=== PATIENT | female | born 1960 | race Two or more races ===

== ENCOUNTER 2025-05-06 12:48 | Inpatient (IN) | payer MEDICAID, OTHER ==
[~2025-05-06] VITALS: Ht 162.6 cm; Wt 79.3 kg
--- NOTE | 2025-05-06 13:48 | ED.PDOC ---
History of Present Illness(SKN HPI Comments 64 y.o female with PMHX of DM, presents to the ED for an evaluation of a foot wound. Patient reports PCP Dr. Ambriz examined patient's foot today after she c/o of left foot redness and swelling radiating up her calf x 2.5 months. Patient had wound cleaned and wrapped there and sent to the ED to get admitted for IV medication and further management of care. She denies any fever, chills, nausea. Chief Complaint: Wound Check Time Seen by MD: 13:35 History of Present Illness: Nurses Notes, Medications, Allergies Allergies: Coded Allergies: Codeine (Verified Allergy, Unknown, 05/06/25) Information Source: Patient Mode of Arrival: Ambulatory Severity: Moderate Timing: Months (2.5) Duration: Since onset Location: Foot Mechanism: Spontaneous Onset Wound Type: Other History of: Diabetes Associated Signs and Symptoms: Swelling Past Medical History PAST MEDICAL HISTORY: DM Surgical History (Other): Left greater toe amputation. DIALYSIS RN History: No Pertinent DIALYSIS RN History Family History Family History: Reviewed,noncontributory to illness Social History Smoker: Non-Smoker Alcohol: Denies ETOH Use Drugs: Denies Drug Use Lives In: Home Constitutional: denies: chills, diaphoresis, fatigue, fever, malaise, sweats, weakness, others EENTM: denies: blurred vision, double vision, ear bleeding, ear discharge, ear drainage, ear pain, ear ringing, eye pain, eye redness, hearing loss, mouth pain, mouth swelling, nasal discharge, nose bleeding, nose congestion, nose pain, photophobia, tearing, throat pain, throat swelling, voice changes, others Respiratory: denies: cough, hemoptysis, orthopnea, SOB at rest, shortness of breath, SOB with excertion, stridor, wheezing, others Cardiovascular: denies: chest pain, dizzy spells, diaphoresis, Dyspnea on exertion, edema, irregular heart beat, left arm pain, lightheadedness, palpitations, PND, syncope, others Gastrointestinal: denies: abdomen distended, abdominal pain, blood streaked bowels, constipated, diarrhea, dysphagia, difficulty swallowing, hematemesis, melena, nausea, poor appetite, poor fluid intake, rectal bleeding, rectal pain, vomiting, others Genitourinary: denies: abnormal vagina bleeding, burning, dyspareunia, dysuria, flank pain, frequency, hematuria, incontinence, pain, , vagina discharge, urgency, others Neurological: denies: dizziness, fainting, headache, left sided numbness, left sided weakness, numbness, paresthesia, pre-existing deficit, right sided numbness, right sided weakness, seizure, speech problems, tingling, tremors, weakness, others Musculoskeletal: denies: back pain, gout, joint pain, joint swelling, muscle pain, muscle stiffness, neck pain, others Integumetry: reports: wounds (left great toe ); denies: bruises, change in color, change in hair/nails, dryness, laceration, lesions, lumps, rash, others Allergic/Immunocompromised: denies: Difficulty Healing, Frequent Infections, Hives, Itching, others Hematologic/Lymphatic: denies: anemia, blood clots, easy bleeding, easy b ruising, swollen glands, others Endocrine: denies: excessive hunger, excessive sweating, excessive thirst, excessive urination, flushing, intolerance to cold, intolerance to heat, unexplained weight gain, unexplained weight loss, others Psychiatric: denies: anxiety, bipolar disorder, depression, hopeless, panic disorder, schizophrenia, sleepless, suicidal, others All Other Systems: Reviewed and Negative Physical Exam General Appearance: Moderate Distress HEENT: Normal ENT Inspection, Pharynx Normal, TMs Normal Neck: Full Range of Motion, Non-Tender, Normal, Normal Inspection Respiratory: Chest Non-Tender, Lungs Clear, No Accessory Muscle Use, No Respiratory Distress, Normal Breath Sounds Cardiovascular: No Edema, No JVD, No Murmur, No Gallop, Normal Peripheral Pulses, Regular Rate/Rhythm Breast Exam: Deferred Gastrointestinal: No Organomegaly, Non Tender, No Pulsatile Mass, Normal Bowel Sounds, Soft Genitalia: Deferred Pelvic: Deferred Rectal: Deferred Extremities: No calf tenderness, Normal capillary refill, Normal inspection, Normal range of motion, Non-tender, No pedal edema, Swelling (Left lower extremity), Other (Old right toe amputation) Musculoskeletal : Apperance: Normal Neurologic: Alert, detention deputy II-XII nml as Tested, No Motor Deficits, Normal Affect, Normal Mood, No Sensory Deficits Cerebellar Function: NOT DONE Reflexes: NOT DONE Skin: Wounds (Left foot) Peripheral Pulses: 3+ Radial (R), 3+ Radial (L) Lymphatic: No Adenopathy Was a procedure done? Was a procedure done?: No Differential Diagnosis (INTG) Differential Diagnosis: Cellulitis Differential Diagnosis: Cellulitis, Osteomyelitis Abscess: Bacteremia X-Ray, Labs, Meds, VS Vital Signs Date Time Temp Pulse Resp B/P (MAP) Pulse Ox O2 Delivery O2 Flow Rate FiO2 05/06/25 17:17 98.7 93 13 137/60 (85) 98.7 05/06/25 14:46 98.0 94 16 130/58 (82) 100 98.0 05/06/25 12:51 98.0 106 18 117/57 95 98.0 Lab Test 05/06/25 13:35 Range/Units White Blood Count 6.1 4.4-10.8 10^3/uL Red Blood Count 3.97 L 4.0-5.20 10^6/uL Hemoglobin 11.4 L 12.2-16.2 g/dL Hematocrit 33.9 L 36.0-46.0 % Mean Corpuscular Volume 85.5 80.0-100.0 fL Mean Corpuscular Hemoglobin 28.7 28.0-32.0 pg Mean Corpuscular Hemoglobin Concent 33.6 32.0-36.0 g/dL Red Cell Distribution Width 13.7 11.8-14.3 % Platelet Count 348 140-450 10^3/uL Mean Platelet Volume 6.8 L 6.9-10.8 fL Neutrophils (%) (Auto) 71.8 37.0-80.0 % Lymphocytes (%) (Auto) 18.3 10.0-50.0 % Monocytes (%) (Auto) 8.1 0.0-12.0 % Eosinophils (%) (Auto) 1.5 0.0-7.0 % Basophils (%) (Auto) 0.3 0.0-2.0 % Neutrophils # (Auto) 4.4 1.6-8.6 10 ^3/uL Lymphocytes # (Auto) 1.1 0.4-5.4 10 ^3/uL Monocytes # (Auto) 0.5 0-1.3 10 ^3/uL Eosinophils # (Auto) 0.1 0-0.8 10 ^3/uL Basophils # (Auto) 0 0-0.2 10 ^3/uL Nucleated Red Blood Cells 0.0 % Sodium Level 134 L 136-145 mmol/L Potassium Level 4.2 3.5-5.1 mmol/L Chloride Level 97 L 98-107 mmol/L Carbon Dioxide Level 26 20-31 mmol/L Anion Gap 11 5-15 Blood Urea Nitrogen 16 9-23 mg/dL Creatinine 1.27 H 0.550-1.02 mg/dL Glomerular Filtration Rate Calc 47 >90 mL/min BUN/Creatinine Ratio 12.6 10.0-20.0 Serum Glucose 208 H 74-106 mg/dL Calcium Level 9.5 8.7-10.4 mg/dL Patient alert. Vitals stable. Came in because she needed antibiotics per her left lower extremity. Answering questions. WBC within normal limits. Blood sugar elevated. Establish intravenous access. Was given fluids. Was given Zosyn. Was given clindamycin. Explained to the patient. Continue to monitor. Time of 1ST Reevaluation: 13:43 Reevaluation 1ST: Unchanged Patient Education/Counseling: Diagnosis, Treatment, Prognosis Family Education/Counseling: No Family Present SEPSIS Sepsis Screen Date sepsis recognized/suspect: May 06, 2025 Time Sepsis recognized/suspect: 1252 Recent Procedure: No On Antibiotic Therapy: No Respiratory Rate >20: No Heart Rate >90: Yes Temp<36 C (96.8 F) or >38.3 C: No SBP <90 or MAP <65 mmHG: No New Acute Mental Status Change: No Is the patient on CPAP, BIPAP,: No Physician Orders Urinalysis (05/06/25 13:18) Vital Signs Date Time Temp Pulse Resp B/P (MAP) Pulse Ox O2 Delivery O2 Flow Rate FiO2 05/06/25 17:17 98.7 93 13 137/60 (85) 98.7 05/06/25 14:46 98.0 94 16 130/58 (82) 100 98.0 05/06/25 12:51 98.0 106 18 117/57 95 98.0 Laboratory Tests Test 05/06/25 13:35 White Blood Count 6.1 10^3/uL (4.4-10.8) Departure 1 Departure Time of Disposition: 17:46 Impression: Primary Impression: Uncontrolled diabetes mellitus Qualified Codes: E13.65 - Other specified diabetes mellitus with hyperglycemia Additional Impression: Osteomyelitis Qualified Codes: M86.9 - Osteomyelitis, unspecified Disposition: 09 ADMITTED INPATIENT Admit to: Med Surg Condition: Guarded Critical Care Note Critical Care Time?: No Stability Stability form required: No I personally scribed for DANIEL PAGE MD ([facility] on 05/06/25 at 13:48. Electronically submitted by Isabel Olmos ([facility]). DANIEL PAGE MD May 06, 2025 13:48
[2025-05-06 13:49] LABS: Hematocrit 33.9 % (36.0-46.0); Hemoglobin 11.4 g/dL (12.2-16.2); Mean Corpuscular Hemoglobin 28.7 pg (28.0-32.0); Mean Corpuscular Volume 85.5 fL (80.0-100.0); Nucleated Red Blood Cells % 0.0 %
[2025-05-06 14:00] LABS: Potassium 4.2 mmol/L (3.5-5.1)
[2025-05-06 14:01] LABS: Calcium 9.5 mg/dL (8.7-10.4); Carbon Dioxide 26 mmol/L (20-31)
[2025-05-06 14:04] LABS: Anion Gap 11 (5-15); Chloride 97 mmol/L (98-107); Sodium 134 mmol/L (136-145)
[2025-05-06 14:06] LABS: BUN/Creatinine Ratio 12.6 (10.0-20.0); Blood Urea Nitrogen 16 mg/dL (9-23)
[2025-05-06 14:07] LABS: Glucose 208 mg/dL (74-106)
[2025-05-06 17:17] VITALS: O2SAT 98
[2025-05-06] MEDS: CLINDAMYCIN 600MG IV 50 ML IV ONE (18:08)
--- NOTE | 2025-05-06 18:22 | DVH ---
CLINICAL HISTORY: dvt left lower extremity swelling TECHNIQUE: Color and duplex doppler imaging of the left lower extremity veins was performed. Vessel c ompression if possible was also performed. WID: COMPARISON: None FINDINGS: Prominent left inguinal lymph node measuring 3.3 cm. Left common femoral vein: Normal compressibility and flow. Left femoral vein: Normal compressibility and flow. Left popliteal vein: Normal compressibility and flow. Proximal calf veins are normally compressible. IMPRESSION: 1. NO SONOGRAPHIC EVIDENCE FOR DEEP VENOUS THROMBOSIS IN THE LEFT LOWER EXTREMITY VEINS.
[2025-05-06] MEDS ORDERED: VANCOMYCIN PER PHARMACY 0 MG IV SCH (18:45)
[2025-05-06] MEDS ORDERED: DEXTROSE (50%) 50ML SYRG IV PRN (18:45)
--- NOTE | 2025-05-06 19:01 | DVHHPRES ---
History of Present Illness Resident Creating Document: LINWOOD WHITFIELD Reason for Visit: left foot ulcer History of Present Illness 64 year old female with a past medical history of type 2 diabetes diagnosed 4 years ago on metformin and Jardiance came to the emergency department for left toe ulcer. Patient has been going to Dr. Ambriz in2 months ago she had an ulcer in the right toe. Patient reports that Dr. Ambriz has been seeing her and been cutting off the calluses, on Friday he cut some more and gave her Bactrim but patient was unable to take it because of miscommunication with the pharmacy and only received the medication on Friday(4 days ago). Patient reports that after going home from Dr. Ambriz's office she had fever, chills, diaphoresis and was drowsy. She began the Bactrim on Friday and today met him after which he suggested the patient to come to the ER.. Past medical history: Type 2 diabetes mellitus Past surgical history: History of amputation of the right toe Family history: Patient reports that family has prediabetic, cervical cancer and brain tumor Allergies: None Social history: Patient denies ever drinking, smoking or taking any illicit antonio gs Medication at home: Metformin, Jardiance, gabapentin, Bactrim Code status: Full code PCP: Dr. Reyes Review of Systems Constitutional: Yes: Fever, Chills, Sweats Eyes: No: Pain, Vision change, Conjunctivae inflammation, Eyelid inflammation, Other, Redness ENT: No: Ear pain, Ear discharge, Nose pain, Nose discharge, Nose congestion, Mouth pain, Mouth swelling, Throat pain, Throat swelling, Other Respiratory: No: Cough, Dry, Shortness of breath, SOB with excertion, Wheezing, Hemoptysis, Pleuritic Pain, Sputum, Wheezing, Other Cardiovascular: No: Chest Pain, Palpitations, Orthopnea, Paroxysmal Noc. Dyspnea, Edema, Lt Headedness, Other Gastrointestinal: No: Nausea, Vomiting, Abdominal Pain, Diarrhea, Constipation, Melena, Hematochezia, Other Genitourinary: No Dysuria, No Frequency, No Incontinence, No Hematuria, No Retention, No Other Musculoskeletal: leg pain, foot pain Skin: No: Rash, Lesions, Jaundice, Bruising, Other Neurological: No: Weakness, Numbness, Incoordination, Change in speech, Confusion, Seizures, Other Allergies: Coded Allergies: Codeine (Verified Allergy, Unknown, 05/06/25) Medications Metformin, Jardiance, gabapentin, Bactrim Exam Vital Signs Vital Signs Date Time Temp Pulse Resp B/P (MAP) Pulse Ox O2 Delivery O2 Flow Rate FiO2 05/06/25 17:17 98.7 93 13 137/60 (85) 98.7 05/06/25 14:46 100 Exam Pt is lying on bed General Appearance: Alert, Oriented X3, Cooperative, Not in acute distress HEENT: Atraumatic, Mucous membranes moist/pink Respiratory: Clear to auscultation, Normal air movement, No added sounds Cardiovascular: Regular rate, Normal S1, Normal S2, No murmurs Abdominal: Active bowel sounds, Soft, no distention, no tenderness Extremities: No edema, Normal pulses, No tenderness/swelling, right toe amputated, left toe bandaged, left calf is larger, warm compared to the right calf, pitting edema +1 up to knee on left leg Skin: No Significant rash, except past surgical scars Neuro: Normal speech, sensorimotor deficits none Psych/Mental Status: Mental status NL, Mood NL Nurse was there as forestry fire aide during examination Labs/Xrays Labs Test 05/06/25 18:00 05/06/25 13:35 Range/Units Lactic Acid Level 1.0 0.4-2.0 mmol/L White Blood Count 6.1 4.4-10.8 10^3/uL Red Blood Count 3.97 L 4.0-5.20 10^6/uL Hemoglobin 11.4 L 12.2-16.2 g/dL Hematocrit 33.9 L 36.0-46.0 % Mean Corpuscular Volume 85.5 80.0-100.0 fL Mean Corpuscular Hemoglobin 28.7 28.0-32.0 pg Mean Corpuscular Hemoglobin Concent 33.6 32.0-36.0 g/dL Red Cell Distribution Width 13.7 11.8-14.3 % Platelet Count 348 140-450 10^3/uL Mean Platelet Volume 6.8 L 6.9-10.8 fL Neutrophils (%) (Auto) 71.8 37.0-80.0 % Lymphocytes (%) (Auto) 18.3 10.0-50.0 % Monocytes (%) (Auto) 8.1 0.0-12.0 % Eosinophils (%) (Auto) 1.5 0.0-7.0 % Basophils (%) (Auto) 0.3 0.0-2.0 % Neutrophils # (Auto) 4.4 1.6-8.6 10 ^3/uL Lymphocytes # (Auto) 1.1 0.4-5.4 10 ^3/uL Monocytes # (Auto) 0.5 0-1.3 10 ^3/uL Eosinophils # (Auto) 0.1 0-0.8 10 ^3/uL Basophils # (Auto) 0 0-0.2 10 ^3/uL Nucleated Red Blood Cells 0.0 % Sodium Level 134 L 136-145 mmol/L Potassium Level 4.2 3.5-5.1 mmol/L Chloride Level 97 L 98-107 mmol/L Carbon Dioxide Level 26 20-31 mmol/L Anion Gap 11 5-15 Blood Urea Nitrogen 16 9-23 mg/dL Creatinine 1.27 H 0.550-1.02 mg/dL Glomerular Filtration Rate Calc 47 >90 mL/min BUN/Creatinine Ratio 12.6 10.0-20.0 Serum Glucose 208 H 74-106 mg/dL Calcium Level 9.5 8.7-10.4 mg/dL SEPSIS Sepsis Screen Date sepsis recognized/suspect: May 06, 2025 Time Sepsis recognized/suspect: 1252 Recent Procedure: No On Antibiotic Therapy: No Respiratory Rate >20: No Heart Rate >90: Yes Temp<36 C (96.8 F) or >38.3 C: No SBP <90 or MAP <65 mmHG: No New Acute Mental Status Change: No Is the patient on CPAP, BIPAP,: No Physician Orders Urinalysis (05/06/25 13:18) Lt Lower Dvt (05/06/25 17:50) Piperacillin-Tazob 3.375gm (Zosyn 3.375g (05/06/25 18:00) Clindamycin 600mg Iv (Cleocin Iv) (05/06/25 18:00) Sodium Chloride 0.9% (05/06/25 18:00) Sodium Chloride 0.9% (05/06/25 18:00) Blood Culture (05/06/25 17:50) Ct L Foot Wo Contrast (05/06/25 17:50) Acetaminophen Tab Or Cap (Tylenol Tablet (05/06/25 18:30) Admit (05/06/25 18:42) Oxygen By Nasal Cannula (05/06/25 18:42) Stat Ekg For Chest Pain (05/06/25 18:42) Notify Of Changes From Base (05/06/25 18:42) Vital Signs Date Time Temp Pulse Resp B/P (MAP) Pulse Ox O2 Delivery O2 Flow Rate FiO2 05/06/25 17:17 98.7 93 13 137/60 (85) 98.7 05/06/25 14:46 98.0 94 16 130/58 (82) 100 98.0 05/06/25 12:51 98.0 106 18 117/57 95 98.0 Laboratory Tests Test 05/06/25 13:35 05/06/25 18:00 White Blood Count 6.1 10^3/uL (4.4-10.8) Lactic Acid Level 1.0 mmol/L (0.4-2.0) Medications Medications Dose Ordered Sig/Nigel Route Start Time Stop Time Status Last Admin Dose Admin Clindamycin Phosphate 50 ml @ 50 mls/hr ONCE ONCE IV 05/06/25 18:00 05/06/25 18:59 05/06/25 18:08 50 MLS/HR Assessment/Plan Assessment/Plan Assessmenr and Plan #Right toe ulcer #osteomyelitis of the right toe #Rule out DVT -CT left foot without contrast shows: Extensive bony destruction and sclerosis at the 1st distal phalanx compatible with osteomyelitis; Probable superimposed oblique fracture of the medial base of the 1st distal phalanx, Diffuse soft tissue edema at the ankle and foot. --Extremity venous Doppler shows no sonographic evidence for deep vein thrombo sis in the left lower extremity veins - metronidazole 500 mg IV daily -Vancomycin 1 g IV daily -Cefepime 2g IV Q8 -IV fluids sodium chloride 0.9% -Lovenox 40 mg subcutaneous daily -consistent carbohydrate diet, NPO after midnight -PT/PTT, pending -podiatry consult, pending -EKG -BNP # diabetes mellitus type 2 -HBA1c, pending -Accu-Cheks -Mild sliding scale insulin -insulin Lantus 10 units subcutaneous hs DVT prophylaxis Lovenox Goals of care discussed with the patient for more than 27 minutes: Full code status Case discussed with Dr. Covarrubias, patient and nurse. Plan discussed with: Patient Date of Service: May 06, 2025 Billing Provider: LUDMILA COVARRUBIAS MD Common Visit Codes: [id number] INP/OBS CARE (HIGH) Secondary Visit Codes: [id number] CARE PLAN 30 MINUTES LINWOOD WHITFIELD RESIDENT May 06, 2025 19:01
--- NOTE | 2025-05-06 19:21 | DVH ---
EXAMINATION: CT CT L FOOT WO CONTRAST INDICATION: Pain and swelling. Is 4 osteomyelitis. COMPARISON: None TECHNIQUE: CT of the rightleft foot was performed without contrast. Volume transverse images were obt ained reconstructed in multiple planes using bone and soft tissue algorithms. CTD: 7.75 mGy, DLP: 27.21 mGy-cm FINDINGS: Diffuse soft tissue edema at the ankle and foot. This is most pronounced at the 1st toe. No organized fluid collections. Extensive bony destruction and sclerosis at the 1st distal phalanx with if you local of gas in the so ft tissues. No other obvious erosive changes. Probable superimposed oblique fracture at the medial base of the 1st distal phalanx. IMPRESSION: Extensive bony destruction and sclerosis at the 1st distal phalanx compatible with osteomyelitis. Probable superimposed oblique fracture of the medial base of the 1st distal phalanx. Diffuse soft tissue edema at the ankle and foot.
--- NOTE | 2025-05-06 19:30 | DVH ---
EXAM: XY CHEST PORTABLE CLINICAL HISTORY: sob TECHNIQUE: Single AP view of the chest WID: COMPARISON: None FINDINGS: Lines and tubes: None Chest: The heart size and pulmonary vasculature is within normal limits. No pleural effusion, pneumothorax, or consolidation. Limited depth of inspiration. The osseous structures are grossly intact. Multilevel thoracic spondylosis. IMPRESSION: 1. No acute cardiopulmonary abnormality.
[2025-05-06 19:35] LABS: Urine Protein, UAD TRACE (Negative)
[2025-05-06 19:36] LABS: Alanine Aminotransferase 12.0 U/L (7-40); Albumin 4.5 g/dL (3.2-4.8); Alkaline Phosphatase 88.0 U/L (46-116); Total Protein 8.0 g/dL (5.7-8.2)
[2025-05-06 19:37] LABS: Bilirubin, Direct 0.1 mg/dL (<0.3); Bilirubin, Total 0.4 mg/dL (0.2-1.0)
[2025-05-06] MEDS: ACCU-CHEK COMFORT CURVE STRIP VI SCH (20:00)
[2025-05-06] MEDS: INSULIN LANTUS (GLARGINE) 1 /0.01ml (100units/ml) SC ONE (20:00)
[2025-05-06] MEDS: SODIUM CHLORIDE 0.9% 1,000 ML IV ONE (20:03)
[2025-05-06] MEDS: VANCOMYCIN 1GM/250ML KIT 250 ML IV ONE (20:03)
[2025-05-06] MEDS: ACETAMINOPHEN 500 MG TAB or CAP PO ONE (20:03)
[2025-05-06] MEDS: InsuLIN REG 1unit/0.01ml Soln (100units/ml) SC SCH (20:43)
[2025-05-06] MEDS: PIPERACILLIN-TAZOB 3.375GM 100 ML IV ONE (21:39)
[2025-05-06] MEDS: SODIUM CHLORIDE 0.9% 500 ML IV ONE (21:40)
[2025-05-06] MEDS: ENOXAPARIN SOD 40 MG/0.4 ML SYRINGE SC ONE (21:40)
[2025-05-06] MEDS: CEFEPIME 2GM/50ML NS 50 ML IV SCH (22:30)
[2025-05-06] MEDS: VANCOMYCIN 1GM/250ML IV ONE (23:37)
[2025-05-07] VITALS (9 sets, daily range): BP systolic 103–121; BP diastolic 62–68; PULSE 59–68; RESP 16–18; TEMP 98–98.7; O2SAT 94–98
[2025-05-07] MEDS: SODIUM CHLORIDE 0.9% 1,000 ML IV ONE (00:50)
[2025-05-07 03:47] LABS: Hematocrit 29.6 % (36.0-46.0); Hemoglobin 10.0 g/dL (12.2-16.2); Mean Corpuscular Hemoglobin 28.9 pg (28.0-32.0); Mean Corpuscular Volume 85.2 fL (80.0-100.0); Nucleated Red Blood Cells % 0.1 %
[2025-05-07 03:56] LABS: Anion Gap 9 (5-15); Calcium 8.8 mg/dL (8.7-10.4); Carbon Dioxide 25 mmol/L (20-31); Chloride 103 mmol/L (98-107); Potassium 4.0 mmol/L (3.5-5.1); Sodium 137 mmol/L (136-145)
[2025-05-07 04:02] LABS: BUN/Creatinine Ratio 16.0 (10.0-20.0); Blood Urea Nitrogen 16 mg/dL (9-23); Magnesium 1.9 mg/dL (1.6-2.6)
[2025-05-07 04:03] LABS: Glucose 177 mg/dL (74-106)
[2025-05-07] MEDS ORDERED: GABA-1250 PO (04:53)
[2025-05-07] MEDS ORDERED: OMEG1400 PO (04:53)
[2025-05-07] MEDS ORDERED: METF-370 PO (04:53)
[2025-05-07] MEDS ORDERED: DEXTROSE (50%) 50ML SYRG IV PRN (06:30)
[2025-05-07] MEDS: ACCU-CHEK COMFORT CURVE STRIP VI SCH (08:40)
[2025-05-07] MEDS: InsuLIN REG 1unit/0.01ml Soln (100units/ml) SC SCH (08:43)
[2025-05-07] MEDS: INSULIN LISPRO (HUMAN) 100 UNITS/ML ML SC SCH ×2 (08:43→13:54)
[2025-05-07] MEDS: INSULIN LANTUS (GLARGINE) 1 /0.01ml (100units/ml) SC SCH (08:43)
[2025-05-07] MEDS: ACETAMINOPHEN 325 MG TAB PO PRN ×2 (10:14→16:25)
[2025-05-07] MEDS: ENOXAPARIN SOD 40 MG/0.4 ML SYRINGE SC SCH (10:15)
--- NOTE | 2025-05-07 12:07 | DVHPNRES ---
Progress Note Date Seen: May 07, 2025 Resident Creating Document: CLIFTON LARSON RESIDENT Medical Necessity Reason Pt with a Central, PICC or Fol: No Subjective Review of Systems HPI 64 year old female with a past medical history of type 2 diabetes diagnosed 4 years ago on metformin and Jardiance came to the emergency department for left toe ulcer. Patient has been going to Dr. Ambriz in2 months ago she had an ulcer in the right toe. Patient reports that Dr. Ambriz has been seeing her and been cutting off the calluses, on Friday he cut some more and gave her Bactrim but patient was unable to take it because of miscommunication with the pharmacy and only received the medication on Friday(4 days ago). Patient reports that after going home from Dr. Ambriz's office she had fever, chills, diaphoresis and was drowsy. She began the Bactrim on Friday and today met him after which he suggested the patient to come to the ER.. Past medical history: Type 2 diabetes mellitus Past surgical history: History of amputation of the right toe Family history: Patient reports that family has prediabetic, cervical cancer and brain tumor Allergies: None Social history: Patient denies ever drinking, smoking or taking any illicit drugs Medication at home: Metformin, Jardiance, gabapentin, Bactrim Code status: Full code PCP: Dr. Reyes Interval events 05/07/2025 Patient mentioned mild headache, no complaint Objective vital signs Vital Sign Date Time Temp Pulse Resp B/P (MAP) Pulse Ox O2 Delivery O2 Flow Rate FiO2 05/07/25 08:53 98.0 59 18 118/68 (85) 97 98.0 05/07/25 04:14 Room Air* 0 21 Total Intake and Output 05/06/25 05/06/25 05/07/25 15:00 23:00 07:00 Intake Total 1850 ml 950.0 ml Balance 1850 ml 950.0 ml medications Current Medications Medications Dose Ordered Sig/Nigel Route Start Time Stop Time Status Last Admin Dose Admin Vancomycin HCl 0 ml @ 0 mls/hr UD IV 05/06/25 18:45 Cefepime HCl 50 ml @ 12.5 mls/hr Q8HR IV 05/06/25 22:00 05/07/25 06:27 12.5 MLS/HR Insulin Glargine 10 units QAM SC 05/07/25 07:00 Enoxaparin Sodium 40 mg DAILY SC 05/07/25 10:00 05/07/25 10:15 40 MG Insulin Human Lispro 3 units AC SC 05/07/25 07:00 Diagnostic Test (Pha) 1 strip ACHS 05/07/25 07:00 05/07/25 08:40 1 STRIP Dextrose 50 ml UD PRN IV 05/07/25 06:30 Acetaminophen 650 mg Q6HP PRN PO 05/07/25 09:30 05/07/25 10:14 650 MG Insulin Human Lispro ACHS SC 05/07/25 11:30 Examination Pt is lying on bed General Appearance: Alert, Oriented X3, Cooperative, Not in acute distress HEENT: Atraumatic, Mucous membranes moist/pink Respiratory: Clear to auscultation, Normal air movement, No added sounds Cardiovascular: Regular rate, Normal S1, Normal S2, No murmurs Abdominal: Active bowel sounds, Soft, no distention, no tenderness Extremities: No edema, Normal pulses, No tenderness/swelling, right toe amputated, left toe bandaged, left calf is larger, warm compared to the right calf, pitting edema +1 up to knee on left leg Skin: No Significant rash, except past surgical scars Neuro: Normal speech, sensorimotor deficits none Psych/Mental Status: Mental status NL, Mood NL laboratory and microbiology Laboratory Tests 05/07/25 03:17 Test 05/07/25 03:17 Range/Units Serum Glucose 177 H 74-106 mg/dL Problem List/Assessment/Plan Problem List/Assessment/Plan Assessment/plan # cellulitis right lower leg # osteomyelitis of the right toe # Probable superimposed oblique fracture of the medial base of the 1st distal phalanx. # Ruled out DVT -CT left foot without contrast shows: Extensive bony destruction and sclerosis at the 1st distal phalanx compatible with osteomyelitis; Probable superimposed oblique fracture of the medial base of the 1st distal phalanx, Diffuse soft tissue edema at the ankle and foot. --Extremity venous Doppler shows no sonographic evidence for deep vein thrombosis in the left lower extremity veins -Vancomycin 1 g IV daily -Cefepime 2g IV Q8 -IV fluids sodium chloride 0.9% -Lovenox 40 mg subcutaneous daily -consistent carbohydrate diet -PT/PTT, pending -podiatry consult, pending -EKG -BNP As per Podiatry, patient needs a PICC line and six weeks of antibiotics Ordered PICC line consult, awaiting placement # diabetes mellitus type 2 -HBA1c, pending -Accu-Cheks -Mild sliding scale insulin -insulin Lantus 10 units subcutaneous hs DVT prophylaxis Lovenox Goals of care discussed with the patient for more than 27 minutes: Full code status Case discussed with Dr. Covarrubias, patient and nurse. Plan discussed with: Patient, Daughter My Orders My Orders Orders - CLIFTON LARSON RESIDENT Procedure Category Date Status Time Admit ADMIT 05/06/25 Transmitted 18:42 Oxygen By Nasal RT 05/06/25 Transmitted Cannula 18:42 Stat Ekg For Chest [facility] 05/06/25 In Process Pain 18:42 Notify Of Changes [facility] 05/06/25 In Process From Base 18:42 Supervisor Costuming For [facility] 05/06/25 In Process 24 Hours 18:42 Emergency Dysrhythmia [facility] 05/06/25 In Process Protocol 18:42 Rhythm Strips Once [facility] 05/06/25 In Process Every Shift 18:42 Vancomycin Per [facility] 05/06/25 In Process Pharmacy 18:45 Cefepime 2gm/50ml Ns [facility] 05/06/25 In Process (Maxipime 2gm/50ml) 22:00 Electrocardigram EKG 05/06/25 Logged 18:42 Insulin Lantus [facility] 05/07/25 In Process (Glargine) (Lantus) 07:00 Enoxaparin Sodium [facility] 05/07/25 In Process (Lovenox) 10:00 *Podiatry Consult CONS 05/06/25 Transmitted Musson(Dvmg) 18:42 Chest Portable XY 05/06/25 Resulted 18:42 * Wound Consult CONS 05/06/25 Transmitted Wound Culture W/ Gs NICOLE 05/06/25 Logged 18:42 Mrsa Screen NICOLE 05/06/25 Logged 18:42 Insulin Lispro [facility] 05/07/25 In Process (Human) (Humalog) 07:00 Glucose Blood PHA 05/07/25 In Process (Accu-Chek Comfort 07:00 Dextrose 50% Syringe PHA 05/07/25 In Process 06:30 Communication Order ORDERS 05/07/25 Transmitted 06:25 Acetaminophen Tablet PHA 05/07/25 In Process (Tylenol Tablet) 09:30 Consistent DIET 05/07/25 Transmitted Carb(Ccho)Diabetes Lunch * Picc Line Consult CONS 05/07/25 Transmitted 11:28 Date of Service: May 07, 2025 Billing Provider: LUDMILA COVARRUBIAS MD Common Visit Codes: [id number] INP/OBS CARE(HIGH) CLIFTON LARSON RESIDENT May 07, 2025 12:07 LUDMILA COVARRUBIAS MD May 11, 2025 23:39
[2025-05-07] MEDS: VANCOMYCIN 1GM/250ML KIT 250 ML IV SCH (17:43)
[2025-05-08] VITALS (9 sets, daily range): BP systolic 110–122; BP diastolic 65–93; PULSE 56–71; RESP 15–19; TEMP 97.7–99.1; O2SAT 96–98
[2025-05-08 06:36] LABS: Hematocrit 32.0 % (36.0-46.0); Hemoglobin 10.9 g/dL (12.2-16.2); Mean Corpuscular Hemoglobin 28.9 pg (28.0-32.0); Mean Corpuscular Volume 85.0 fL (80.0-100.0); Nucleated Red Blood Cells % 0.1 %
[2025-05-08 06:42] LABS: Chloride 102 mmol/L (98-107); Potassium 4.2 mmol/L (3.5-5.1); Sodium 138 mmol/L (136-145)
[2025-05-08 06:43] LABS: Anion Gap 11 (5-15); Calcium 9.6 mg/dL (8.7-10.4); Carbon Dioxide 25 mmol/L (20-31)
[2025-05-08 06:49] LABS: BUN/Creatinine Ratio 19.5 (10.0-20.0); Blood Urea Nitrogen 16 mg/dL (9-23); Magnesium 1.8 mg/dL (1.6-2.6)
[2025-05-08 07:05] LABS: Glucose 119 mg/dL (74-106)
[2025-05-08 08:08] LABS: INR 1.01 (0.9-1.15); Partial Thromboplastin Time 26.8 SEC (24.5-34.5); Prothrombin Time 10.7 sec (9.3-11.8)
--- NOTE | 2025-05-08 10:45 | DVHPNRES ---
Progress Note Date Seen: May 08, 2025 Resident Creating Document: ORA WEAVER RESIDENT Medical Necessity Reason Pt with a Central, PICC or Fol: No Subjective Review of Systems 64 year old female with a past medical history of type 2 diabetes diagnosed 4 years ago on metformin and Jardiance came to the emergency department for left toe ulcer. Patient has been going to Dr. Ambriz in2 months ago she had an ulcer in the right toe. Patient reports that Dr. Ambriz has been seeing her and been cutting off the calluses, on Friday he cut some more and gave her Bactrim but patient was unable to take it because of miscommunication with the pharmacy and only received the medication on Friday(4 days ago). Patient reports that after going home from Dr. Ambriz's office she had fever, chills, diaphoresis and was drowsy. She began the Bactrim on Friday and today met him after which he suggested the patient to come to the ER.. Past medical history: Type 2 diabetes mellitus Past surgical history: History of amputation of the right toe Family history: Patient reports that family has prediabetic, cervical cancer and brain tumor Allergies: None Social history: Patient denies ever drinking, smoking or taking any illicit drugs Medication at home: Metformin, Jardiance, gabapentin, Bactrim Code status: Full code PCP: Dr. Reyes Patient was seen today at bedside, less than chart reviewed. Patient reported feeling better today, blood culture negative, pending wound culture. Doppler study negative for DVT. CT of the left foot revealed- Extensive bony destruction and sclerosis at the 1st distal phalanx compatible with osteomyelitis. Probable superimposed oblique fracture of the medial base of the 1st distal phalanx.Diffuse soft tissue edema at the ankle and foot. Objective vital signs Vital Sign Date Time Temp Pulse Resp B/P (MAP) Pulse Ox O2 Delivery O2 Flow Rate FiO2 05/08/25 09:00 98.3 62 17 122/70 (87) 96 98.3 05/08/25 08:20 Room Air* 0 21 Total Intake and Output 05/07/25 05/07/25 05/08/25 14:59 22:59 06:59 Intake Total 12.5 ml 1480 ml 1040 ml Output Total 600 ml Balance 12.5 ml 1480 ml 440 ml medications Current Medications Medications Dose Ordered Sig/Nigel Route Start Time Stop Time Status Last Admin Dose Admin Vancomycin HCl 0 ml @ 0 mls/hr UD IV 05/06/25 18:45 Cefepime HCl 50 ml @ 12.5 mls/hr Q8HR IV 05/06/25 22:00 05/08/25 06:11 12.5 MLS/HR Insulin Glargine 10 units QAM SC 05/07/25 07:00 05/08/25 06:10 10 UNITS Enoxaparin Sodium 40 mg DAILY SC 05/07/25 10:00 05/08/25 10:11 40 MG Insulin Human Lispro 3 units AC SC 05/07/25 07:00 05/07/25 13:54 3 UNITS Diagnostic Test (Pha) 1 strip ACHS 05/07/25 07:00 05/08/25 10:13 1 STRIP Dextrose 50 ml UD PRN IV 05/07/25 06:30 Insulin Human Lispro ACHS SC 05/07/25 11:30 05/07/25 22:04 1 UNITS Acetaminophen 650 mg Q6HP PRN PO 05/07/25 12:15 05/08/25 06:29 650 MG Vancomycin HCl 250 ml @ 250 mls/hr Q12H IV 05/07/25 18:00 05/08/25 05:00 250 MLS/HR Examination General Appearance: Alert, Oriented X3, Cooperative, Not in acute distress HEENT: Atraumatic, Mucous membranes moist/pink Respiratory: Clear to auscultation, Normal air movement, No added sounds Cardiovascular: Regular rate, Normal S1, Normal S2, No murmurs Abdominal: Active bowel sounds, Soft, no distention, no tenderness Extremities: No edema, Normal pulses, No tenderness/swelling, right toe amputated, left toe bandaged, left calf is larger, warm compared to the right calf, pitting edema +1 up to knee on left leg Skin: No Significant rash, except past surgical scars Neuro: Normal speech, sensorimotor deficits none Psych/Mental Status: Mental status NL, Mood NL laboratory and microbiology Laboratory Tests 05/08/25 05:00 Test 05/08/25 05:00 Range/Units Serum Glucose 119 H 74-106 mg/dL Microbiology Date/Time Source Procedure Growth Status 05/07/25 18:36 Foot Left Gram Stain Pending Resulted 05/07/25 18:36 Foot Left Wound Culture - Preliminary Resulted 05/06/25 18:00 Blood Blood Culture - Preliminary NO GROWTH AFTER 24 HOURS OF INCUBATION. Resulted Problem List/Assessment/Plan Problem List/Assessment/Plan Problem List/Assessment/Plan Assessment/plan # cellulitis right lower leg # osteomyelitis of the right toe # Probable superimposed oblique fracture of the medial base of the 1st distal phalanx. # Ruled out DVT -CT left foot without contrast shows: Extensive bony destruction and sclerosis at the 1st distal phalanx compatible with osteomyelitis; Probable superimposed oblique fracture of the medial base of the 1st distal phalanx, Diffuse soft tissue edema at the ankle and foot. --Extremity venous Doppler shows no sonographic evidence for deep vein thrombosis in the left lower extremity veins -Vancomycin 1 g IV daily -Cefepime 2g IV Q8 -IV fluids sodium chloride 0.9% -Lovenox 40 mg subcutaneous daily -consistent carbohydrate diet -PT/PTT, pending -podiatry consult, pending -EKG -BNP As per Podiatry, patient needs a PICC line and six weeks of antibiotics Ordered PICC line consult, awaiting placement # diabetes mellitus type 2 -HBA1c, pending -Accu-Cheks -Mild sliding scale insulin -insulin Lantus 10 units subcutaneous hs DVT prophylaxis Lovenox Goals of care discussed with the patient for more than 27 minutes: Full code status Case discussed with Dr. Covarrubias, patient and Plan discussed with: Patient, Daughter, Other (RN) ORA WEAVER RESIDENT May 08, 2025 10:45
[2025-05-08] MEDS: LIDOCAINE 1% (LOCAL ANESTH.) PF 5ml SDV ID ONE (12:45)
--- NOTE | 2025-05-08 14:14 | DVHDSRES ---
Discharge Summary Date of Admission Resident Creating Document: ORA WEAVER May 06, 2025 at 18:42 Date of Discharge: May 08, 2025 Labs/Diagnostic Data: Laboratory Results Test 05/08/25 10:12 05/08/25 05:00 05/06/25 18:00 05/06/25 13:35 POC Glucose 191 mg/dl (70-106) White Blood Count 4.4 10^3/uL (4.4-10.8) Red Blood Count 3.76 10^6/uL (4.0-5.20) Hemoglobin 10.9 g/dL (12.2-16.2) Hematocrit 32.0 % (36.0-46.0) Mean Corpuscular Volume 85.0 fL (80.0-100.0) Mean Corpuscular Hemoglobin 28.9 pg (28.0-32.0) Mean Corpuscular Hemoglobin Concent 34.0 g/dL (32.0-36.0) Red Cell Distribution Width 13.7 % (11.8-14.3) Platelet Count 322 10^3/uL (140-450) Mean Platelet Volume 7.1 fL (6.9-10.8) Neutrophils (%) (Auto) 57.6 % (37.0-80.0) Lymphocytes (%) (Auto) 28.1 % (10.0-50.0) Monocytes (%) (Auto) 9.7 % (0.0-12.0) Eosinophils (%) (Auto) 3.7 % (0.0-7.0) Basophils (%) (Auto) 0.9 % (0.0-2.0) Neutrophils # (Auto) 2.5 10 ^3/uL (1.6-8.6) Lymphocytes # (Auto) 1.2 10 ^3/uL (0.4-5.4) Monocytes # (Auto) 0.4 10 ^3/uL (0-1.3) Eosinophils # (Auto) 0.2 10 ^3/uL (0-0.8) Basophils # (Auto) 0 10 ^3/uL (0-0.2) Nucleated Red Blood Cells 0.1 % Prothrombin Time 10.7 sec (9.3-11.8) Prothrombin Time INR 1.01 (0.9-1.15) Activated Partial Thromboplast Time 26.8 SEC (24.5-34.5) Sodium Level 138 mmol/L (136-145) Potassium Level 4.2 mmol/L (3.5-5.1) Chloride Level 102 mmol/L (98-107) Carbon Dioxide Level 25 mmol/L (20-31) Anion Gap 11 (5-15) Blood Urea Nitrogen 16 mg/dL (9-23) Creatinine 0.82 mg/dL (0.550-1.02) Glomerular Filtration Rate Calc 79 mL/min (>90) BUN/Creatinine Ratio 19.5 (10.0-20.0) Serum Glucose 119 mg/dL (74-106) Calcium Level 9.6 mg/dL (8.7-10.4) Magnesium Level 1.8 mg/dL (1.6-2.6) Lactic Acid Level 1.0 mmol/L (0.4-2.0) Total Bilirubin 0.4 mg/dL (0.2-1.0) Direct Bilirubin 0.1 mg/dL (<0.3) Aspartate Amino Transferase (AST) 20 U/L (13-40) Alanine Aminotransferase (ALT) 12 U/L (7-40) Alkaline Phosphatase 88 U/L (46-116) Troponin I High Sensitivity < 3 ng/L (</=34) Total Protein 8.0 g/dL (5.7-8.2) Albumin 4.5 g/dL (3.2-4.8) Thyroid Stimulating Hormone (TSH) 0.64 uIU/mL (0.55-4.78) Hemoglobin A1c 8.4 % A1C (<5.7) B-Type Natriuretic Peptide 53.25 pg/mL (0-100) Test 05/06/25 00:00 Urine Color Light-yellow (Yellow) Urine Clarity Clear (Clear) Urine pH 5.5 (5.0-9.0) Urine Specific [place] 1.017 (1.001-1.035) Urine Protein Trace (Negative) Urine Ketones Negative (Negative) Urine Blood Negative /uL (Negative) Urine Nitrite Negative (Negative) Urine Bilirubin Negative (Negative) Urine Urobilinogen Normal mg/dL (Negative) Urine Leukocyte Esterase Trace /uL (Negative) Urine RBC 2 /hpf (0 - 4) Urine Microscopic WBC 5 /HPF (0-5) Urine Squamous Epithelial Cells Few /hpf (<5) Urine Bacteria None seen /hpf (None Seen) Urine Glucose 4+ mg/dL (Normal) Other Laboratory Tests 05/08/25 05:00 Brief Hx & Hospital Course: 64 year old female with a past medical history of type 2 diabetes diagnosed 4 years ago on metformin and Jardiance came to the emergency department for left toe ulcer. Patient has been going to Dr. Ambriz in2 months ago she had an ulcer in the right toe. Patient reports that Dr. Ambriz has been seeing her and been cutting off the calluses, on Friday he cut some more and gave her Bactrim but patient was unable to take it because of miscommunication with the pharmacy and only received the medication on Friday(4 days ago). Patient reports that after going home from Dr. Ambriz's office she had fever, chills, diaphoresis and was drowsy. She began the Bactrim on Friday and today met him after which he suggested the patient to come to the ER.. . Doppler study negative for DVT. CT of the left foot revealed- Extensive bony destruction and sclerosis at the 1st distal phalanx compatible with osteomyelitis. Probable superimposed oblique fracture of the medial base of the 1st distal phalanx.Diffuse soft tissue edema at the ankle and foot. Patient was treated conservatively with IV antibiotic cefepime and vancomycin. Podiatry Dr. Fernandes agreed to [place] patient with IV antibiotic cefepime and vancomycin for total of 6 weeks for osteomyelitis. No surgical intervention needed at this time Patient is being discharged home with the home health for wound care and IV antibiotic cefepime 2 g IV q.8h and vancomycin as per pharmacy protocol for total of 6 weeks from the day abuse starting IV antibiotic in the hospital. Patient was advised to follow up with the Podiatry in 1 week and also to follow up with the primary care physician in 1 week. Patient was advised to follow up with the discharge clinic as per schedule. Patient was hemodynamically stable on discharge. Operations or Procedures [address] [address] Ph: [phone] DIAGNOSTIC IMAGING Diagnostic Imaging Report : [id number] Signed PATIENT: DALLIN GORDON ACCT: [id number] UNIT: [id number] : 1960 LOC: OVERFLOW ROOM / BED: [address] [place] [address] / AGE / SEX: 64 / F ADM STATUS: ADM IN SERVICE 49 ORDERING PHYSICIAN: DANIEL PAGE MD PROCEDURE(s): LFTCT - CT L FOOT WO CONTRAST REASON: osteo ORDER NUMBER(s): [id number], ACCESSION NUMBER(s): [id number] EXAMINATION: CT CT L FOOT WO CONTRAST INDICATION: Pain and swelling. Is 4 osteomyelitis. COMPARISON: None TECHNIQUE: CT of the rightleft foot was performed without contrast. Volume transverse images were obtained reconstructed in multiple planes using bone and soft tissue algorithms. CTD: 7.75 mGy, DLP: 27.21 mGy-cm FINDINGS: Diffuse soft tissue edema at the ankle and foot. This is most pronounced at the 1st toe. No organized fluid collections. Extensive bony destruction and sclerosis at the 1st distal phalanx with if you local of gas in the soft tissues. No other obvious erosive changes. Probable superimposed oblique fracture at the medial base of the 1st distal phalanx. IMPRESSION: Extensive bony destruction and sclerosis at the 1st distal phalanx compatible with osteomyelitis. Probable superimposed oblique fracture of the medial base of the 1st distal phalanx. Diffuse soft tissue edema at the ankle and foot. ATED BY: DOMINGO JACOBSON MD DICTATED DATE/TIME: 05/06/251918 SIGNED BY: DOMINGO JACOBSON MD SIGNED DATE/TIME: 05/06/251918 CC: [place] [id number] Ph: [phone] DIAGNOSTIC IMAGING Diagnostic Imaging Report : [id number] Signed PATIENT: DALLIN GORDON ACCT: [id number] UNIT: [id number] : 1960 LOC: ER ROOM / BED: / AGE / SEX: 64 / F ADM STATUS: REG ER SERVICE 49 ORDERING PHYSICIAN: DANIEL PAGE MD PROCEDURE(s): LLDVT - LT Lower DVT REASON: dvt ORDER NUMBER(s): [id number], ACCESSION NUMBER(s): [id number] CLINICAL HISTORY: dvt left lower extremity swelling TECHNIQUE: Color and duplex doppler imaging of the left lower extremity veins was performed. Vessel compression if possible was also performed. WID: COMPARISON: None FINDINGS: Prominent left inguinal lymph node measuring 3.3 cm. Left common femoral vein: Normal compressibility and flow. Left femoral vein: Normal compressibility and flow. Left popliteal vein: Normal compressibility and flow. Proximal calf veins are normally compressible. IMPRESSION: 1. NO SONOGRAPHIC EVIDENCE FOR DEEP VENOUS THROMBOSIS IN THE LEFT LOWER EXTREMITY VEINS. ATED BY: JHONNY CALDERA MD DICTATED DATE/TIME: 05/06/251818 SIGNED BY: JHONNY CALDERA MD SIGNED DATE/TIME: 05/06/251818 CC: [place] [id number] Ph: [phone] DIAGNOSTIC IMAGING Diagnostic Imaging Report : [id number] Signed PATIENT: DALLIN GORDON ACCT: [id number] UNIT: [id number] : 1960 LOC: OVERFLOW ROOM / BED: [address] [place] [address] AGE / SEX: 64 / F ADM STATUS: ADM IN SERVICE 41 ORDERING PHYSICIAN: CLIFTON LARSON RESIDENT PROCEDURE(s): CXRP - CHEST PORTABLE REASON: sob ORDER NUMBER(s): [id number], ACCESSION NUMBER(s): [id number] EXAM: XY CHEST PORTABLE CLINICAL HISTORY: sob TECHNIQUE: Single AP view of the chest WID: COMPARISON: None FINDINGS: Lines and tubes: None Chest: The heart size and pulmonary vasculature is within normal limits. No pleural effusion, pneumothorax, or consolidation. Limited depth of inspiration. The osseous structures are grossly intact. Multilevel thoracic spondylosis. IMPRESSION: 1. No acute cardiopulmonary abnormality. ATED BY: JHONNY CALDERA MD DICTATED DATE/TIME: 05/06/251926 SIGNED BY: JHONNY CALDERA MD SIGNED DATE/TIME: 05/06/251926 CC: Condition at Discharge: Stable Final Diagnosis/Problems List # cellulitis LEFT lower leg # osteomyelitis of the Left toe # Probable superimposed oblique fracture of the medial base of the 1st distal phalanx. # Ruled out DVT # diabetes mellitus type 2 Discharge Disposition: Home with Health Services Discharge Instruct/Medications Activity: Light activity Follow Up/Referral: please follow up with Dr. Carmona in one week please follow up with with your primary care physician in one week please follow up at the discharge clinic on 05/13/25Friday Medications: Cefepime 2 gm q8h as prescribed Vancomycin 1 gm iv q12 h as prescribed please reseme other home medication Scheduled Gabapentin (Gabapentin), 1 CAP PO DAILY, (Reported) Metformin Hydrochloride (Metformin Hcl), 1 TAB PO BID, (Reported) Miscellaneous Medications Capac-3 Fatty Acids (Capac-3), 1,400 MG PO, (Reported) Discharge Statement: "Patient was advised to return to the ER or call 911 if any headaches, dizziness, shortness of breath, chest pain, abdominal pain, bleeding, fevers, or worsening of medical condition. Patient was counseled about treatment plan, medications, possible side effects, patientverbalized understanding. All questions were answered to the best of my ability. This discharge took greater then 30 minutes in planning, reviewing documentation, counseling the patient, and discussing with other team members." ASSESSMENT ASSESSMENT Assessment Date of Service: May 08, 2025 Billing Provider: LUDMILA GONZALEZ MD Common Visit Codes: 07593-UCZ/OBS DISCH DAY >30min ORA WEAVER RESIDENT May 08, 2025 14:14 LUDMILA GONZALEZ MD May 11, 2025 23:42
[2025-05-08] MEDS: SODIUM CHLOR 0.9% PF (SALINE LOCK) 10ML VIAL/SYR IV SCH (21:29)
[2025-05-09 00:51] VITALS: BP 121/68; PULSE 62; RESP 17; TEMP 97.7; O2SAT 96
[2025-05-09 04:39] VITALS: BP 117/66; PULSE 66; RESP 16; TEMP 98.6; O2SAT 98
[2025-05-09 05:34] LABS: Hematocrit 31.4 % (36.0-46.0); Hemoglobin 10.6 g/dL (12.2-16.2); Mean Corpuscular Hemoglobin 28.8 pg (28.0-32.0); Mean Corpuscular Volume 84.8 fL (80.0-100.0); Nucleated Red Blood Cells % 0.1 %
[2025-05-09 05:43] LABS: Chloride 100 mmol/L (98-107); Potassium 4.5 mmol/L (3.5-5.1); Sodium 139 mmol/L (136-145)
[2025-05-09 05:44] LABS: Anion Gap 10 (5-15); Carbon Dioxide 29 mmol/L (20-31)
[2025-05-09 05:45] LABS: Calcium 9.3 mg/dL (8.7-10.4)
[2025-05-09 05:50] LABS: BUN/Creatinine Ratio 18.7 (10.0-20.0); Blood Urea Nitrogen 17 mg/dL (9-23); Magnesium 1.7 mg/dL (1.6-2.6)
[2025-05-09 05:54] LABS: Glucose 130 mg/dL (74-106)
[2025-05-09 08:00] VITALS: PULSE 61; RESP 18; O2SAT 95
[2025-05-09 08:45] VITALS: BP 118/82; PULSE 59; RESP 16; TEMP 97.6; O2SAT 99
--- NOTE | 2025-05-09 10:41 | DVHPNRES ---
Progress Note Date Seen: May 09, 2025 Resident Creating Document: LINWOOD WHITFIELD RESIDENT Medical Necessity Reason Pt with a Central, PICC or Fol: No Subjective Review of Systems HPI 64 year old female with a past medical history of type 2 diabetes diagnosed 4 years ago on metformin and Jardiance came to the emergency department for left toe ulcer. Patient has been going to Dr. Ambriz in2 months ago she had an ulcer in the right toe. Patient reports that Dr. Ambriz has been seeing her and been cutting off the calluses, on Friday he cut some more and gave her Bactrim but patient was unable to take it because of miscommunication with the pharmacy and only received the medication on Friday(4 days ago). Patient reports that after going home from Dr. Ambriz's office she had fever, chills, diaphoresis and was drowsy. She began the Bactrim on Friday and today met him after which he suggested the patient to come to the ER.. Past medical history: Type 2 diabetes mellitus Past surgical history: History of amputation of the right toe Family history: Patient reports that family has prediabetic, cervical cancer and brain tumor Allergies: None Social history: Patient denies ever drinking, smoking or taking any illicit drugs Medication at home: Metformin, Jardiance, gabapentin, Bactrim Code status: Full code PCP: Dr. Reyes 05/09/2025 Pt was discharged yesterday but social media marketer tried calling 3 pharmacy to Request IV ABx for home and none of them were able to complete order until today. [facility] was also being waited upon. Dr Ambriz has said pt to follow up with him on previous made appointment date- Friday (05/13/2025). Pt will go home today. Objective vital signs Vital Sign Date Time Temp Pulse Resp B/P (MAP) Pulse Ox O2 Delivery O2 Flow Rate FiO2 05/09/25 08:45 97.6 59 16 118/82 (94) 99 97.6 05/08/25 20:00 Room Air* 0 21 Total Intake and Output 05/08/25 05/08/25 05/09/25 15:00 23:00 07:00 Intake Total 50 ml 975 ml 850 ml Balance 50 ml 975 ml 850 ml medications Current Medications Medications Dose Ordered Sig/Nigel Route Start Time Stop Time Status Last Admin Dose Admin Vancomycin HCl 0 ml @ 0 mls/hr UD IV 05/06/25 18:45 Cefepime HCl 50 ml @ 12.5 mls/hr Q8HR IV 05/06/25 22:00 05/09/25 06:15 12.5 MLS/HR Insulin Glargine 10 units QAM SC 05/07/25 07:00 05/09/25 06:16 10 UNITS Enoxaparin Sodium 40 mg DAILY SC 05/07/25 10:00 05/09/25 09:25 40 MG Insulin Human Lispro 3 units AC SC 05/07/25 07:00 05/09/25 06:15 3 UNITS Diagnostic Test (Pha) 1 strip ACHS 05/07/25 07:00 05/09/25 06:16 1 STRIP Dextrose 50 ml UD PRN IV 05/07/25 06:30 Insulin Human Lispro ACHS SC 05/07/25 11:30 05/08/25 21:30 2 UNITS Acetaminophen 650 mg Q6HP PRN PO 05/07/25 12:15 05/08/25 06:29 650 MG Vancomycin HCl 250 ml @ 250 mls/hr Q12H IV 05/07/25 18:00 Hold 05/09/25 05:01 250 MLS/HR Sodium Chloride 10 ml QSHIFT@10,22 IV 05/08/25 22:00 05/09/25 09:24 10 ML Examination Pt is lying on bed General Appearance: Alert, Oriented X3, Cooperative, Not in acute distress HEENT: Atraumatic, Mucous membranes moist/pink Respiratory: Clear to auscultation, Normal air movement, No added sounds Cardiovascular: Regular rate, Normal S1, Normal S2, No murmurs Abdominal: Active bowel sounds, Soft, no distention, no tenderness Extremities: No edema, Normal pulses, No tenderness/swelling, right toe amputated, left toe bandaged, left calf is larger, warm compared to the right calf, pitting edema +1 up to knee on left leg Skin: No Significant rash, except past surgical scars Neuro: Normal speech, sensorimotor deficits none Psych/Mental Status: Mental status NL, Mood NL laboratory and microbiology Laboratory Tests 05/09/25 05:08 Test 05/09/25 05:08 Range/Units Serum Glucose 130 H 74-106 mg/dL Microbiology Date/Time Source Procedure Growth Status 05/07/25 18:36 Foot Left Gram Stain - Final Resulted 05/07/25 18:36 Foot Left Wound Culture - Preliminary Resulted 05/06/25 18:00 Blood Blood Culture - Preliminary NO GROWTH AFTER 48 HOURS OF INCUBATION. Resulted Labs and/or images reviewed: Labs reviewed by me, Image(s) reviewed by me Problem List/Assessment/Plan Problem List/Assessment/Plan # cellulitis right lower leg # osteomyelitis of the right toe # Probable superimposed oblique fracture of the medial base of the 1st distal phalanx. # Ruled out DVT -CT left foot without contrast shows: Extensive bony destruction and sclerosis at the 1st distal phalanx compatible with osteomyelitis; Probable superimposed oblique fracture of the medial base of the 1st distal phalanx, Diffuse soft tissue edema at the ankle and foot. --Extremity venous Doppler shows no sonographic evidence for deep vein thrombosis in the left lower extremity veins -Vancomycin 1 g IV daily -Cefepime 2g IV Q8 -IV fluids sodium chloride 0.9% -Lovenox 40 mg subcutaneous daily -consistent carbohydrate diet -PT/PTT, pending -podiatry consult, pending -EKG -BNP - As per Podiatry, patient needs a PICC line and six weeks of antibiotics # diabetes mellitus type 2 -HBA1c, pending -Accu-Cheks -Mild sliding scale insulin -insulin Lantus 10 units subcutaneous hs DVT prophylaxis -Lovenox Goals of care discussed with the patient for more than 27 minutes: Full code status Case discussed with Dr. Covarrubias, patient and her daughter Plan discussed with: Patient Dietary Evaluation Review Recommendations by RD: Dietary education by RD, Protein Supplementation Comments: 1) Initiate Pro-Stat @ 1 pk qd 2) Initiate Glucerna qd 3) Initiate vitamin C @ 500 mg bid and zinc sulfate @ 220 mg qd for 7 days 4) Refer to outpatient RD/[facility] for diabetes education 5) Follow-up with podiatry 6) Continue to monitor I&O, labs, and skin integrity Expected Outcomes/Goals: 1) appetite and labs to improve 2) wound to improve 3) f/u in 3-5 days Date of Service: May 09, 2025 Billing Provider: LUDMILA COVARRUBIAS MD Common Visit Codes: [id number] INP/OBS CARE(HIGH) LINWOOD WHITFIELD RESIDENT May 09, 2025 10:41 LUDMILA COVARRUBIAS MD May 11, 2025 23:57
[2025-05-09 12:49] VITALS: BP_SYST 112; BP_SYST 115; BP_DIAS 69; BP_DIAS 83; PULSE 62; PULSE 72; RESP 14; TEMP 97.7; TEMP 98.3; O2SAT 100; O2SAT 98
--- NOTE | 2025-05-09 13:04 | DVHCONRES ---
Date Seen: May 09, 2025 Reason for Consultation Left foot wound History of Present Illness 64 year old female with a past medical history of type 2 diabetes diagnosed 4 years ago on metformin and Jardiance came to the emergency department for left toe ulcer. Patient has been going to Dr. Louise in2 months ago she had an ulcer in the right toe. Patient reports that Dr. Louise has been seeing her and been cutting off the calluses, on Friday he cut some more and gave her Bactrim but patient was unable to take it because of miscommunication with the pharmacy and only received the medication on Friday(4 days ago). Patient reports that after going home from Dr. Louise's office she had fever, chills, diaphoresis and was drowsy. She began the Bactrim on Friday and today met him after which he suggested the patient to come to the ER.. Past Medical History See H&P Past Surgical History See H&P Family History: Patient reports no known family medical history. Allergies: Coded Allergies: Codeine (Verified Allergy, Unknown, 05/06/25) Home Meds Reported Medications Gabapentin (Gabapentin) 300 Mg Cap, 1 CAP PO DAILY, #90 CAP 5 Refills 05/07/25 [place]-3 Fatty Acids ([place]-3) 1,400 Mg Cap, 1400 MG PO, CAP 05/07/25 Metformin Hydrochloride (Metformin Hcl) 500 Mg Tab, 1 TAB PO BID, #60 TAB 3 Refills 05/07/25 Current Medications Current Medications Medications (Trade) Dose Ordered Sig/Nigel Route PRN Reason Start Time Stop Time Status Last Admin Sodium Chloride (Saline Lock Ns) 10 ml QSHIFT@10,22 IV 05/08/25 22:00 05/09/25 09:24 Vital Signs Vital Signs Date Time Temp Pulse Resp B/P (MAP) Pulse Ox O2 Delivery O2 Flow Rate FiO2 05/09/25 12:49 98.3 62 14 112/69 (83) 98 98.3 05/09/25 08:00 Room Air* 0 21 Physical Exam Dermatological: Skin is dry with mild erythema and some maceration around the wound site No gross deformities noted Mild non-pitting edema present bilaterally Left hallux plantar wound with surrounding maceration and cellulitis Vascular: Dorsalis pedis and posterior tibial pulses are 1+ bilaterally Capillary refill is under 2 seconds Skin temperature is warm bilaterally Neurologic: Protective sensation is absent on the plantar forefoot bilaterally Monofilament testing reveals decreased sensation in multiple plantar sites Musculoskeletal: Range of motion at the ankle and MTP joints is within normal limits. Strength is 5/5 in all tested muscle groups. Gait is antalgic due to offloading of the affected limb. Labs/Diagnostic Data Labs Test 05/09/25 11:56 05/09/25 05:08 05/08/25 05:00 05/06/25 18:00 Range/Units POC Glucose 196 H 70-106 mg/dl White Blood Count 6.0 # 4.4-10.8 10^3/uL Red Blood Count 3.70 L 4.0-5.20 10^6/uL Hemoglobin 10.6 L 12.2-16.2 g/dL Hematocrit 31.4 L 36.0-46.0 % Mean Corpuscular Volume 84.8 80.0-100.0 fL Mean Corpuscular Hemoglobin 28.8 28.0-32.0 pg Mean Corpuscular Hemoglobin Concent 33.9 32.0-36.0 g/dL Red Cell Distribution Width 13.6 11.8-14.3 % Platelet Count 329 140-450 10^3/uL Mean Platelet Volume 6.7 L 6.9-10.8 fL Neutrophils (%) (Auto) 52.5 37.0-80.0 % Lymphocytes (%) (Auto) 34.3 10.0-50.0 % Monocytes (%) (Auto) 9.9 0.0-12.0 % Eosinophils (%) (Auto) 2.7 0.0-7.0 % Basophils (%) (Auto) 0.6 0.0-2.0 % Neutrophils # (Auto) 3.2 1.6-8.6 10 ^3/uL Lymphocytes # (Auto) 2.1 0.4-5.4 10 ^3/uL Monocytes # (Auto) 0.6 0-1.3 10 ^3/uL Eosinophils # (Auto) 0.2 0-0.8 10 ^3/uL Basophils # (Auto) 0 0-0.2 10 ^3/uL Nucleated Red Blood Cells 0.1 % Sodium Level 139 136-145 mmol/L Potassium Level 4.5 3.5-5.1 mmol/L Chloride Level 100 98-107 mmol/L Carbon Dioxide Level 29 20-31 mmol/L Anion Gap 10 5-15 Blood Urea Nitrogen 17 9-23 mg/dL Creatinine 0.91 0.550-1.02 mg/dL Glomerular Filtration Rate Calc 70 >90 mL/min BUN/Creatinine Ratio 18.7 10.0-20.0 Serum Glucose 130 H 74-106 mg/dL Calcium Level 9.3 8.7-10.4 mg/dL Magnesium Level 1.7 1.6-2.6 mg/dL Vancomycin Level Trough 21.6 H 5-10 ug/mL Prothrombin Time 10.7 9.3-11.8 sec Prothrombin Time INR 1.01 0.9-1.15 Activated Partial Thromboplast Time 26.8 24.5-34.5 SEC Lactic Acid Level 1.0 0.4-2.0 mmol/L Total Bilirubin 0.4 0.2-1.0 mg/dL Direct Bilirubin 0.1 <0.3 mg/dL Aspartate Amino Transferase (AST) 20 13-40 U/L Alanine Aminotransferase (ALT) 12 7-40 U/L Alkaline Phosphatase 88 46-116 U/L Troponin I High Sensitivity < 3 L </=34 ng/L Total Protein 8.0 5.7-8.2 g/dL Albumin 4.5 3.2-4.8 g/dL Thyroid Stimulating Hormone (TSH) 0.64 0.55-4.78 uIU/mL Test 05/06/25 13:35 05/06/25 00:00 Range/Units Hemoglobin A1c 8.4 H <5.7 % A1C B-Type Natriuretic Peptide 53.25 0-100 pg/mL Urine Color Light-yellow Yellow Urine Clarity Clear Clear Urine pH 5.5 5.0-9.0 Urine Specific [place] 1.017 1.001-1.035 Urine Protein Trace H Negative Urine Ketones Negative Negative Urine Blood Negative Negative /uL Urine Nitrite Negative Negative Urine Bilirubin Negative Negative Urine Urobilinogen Normal Negative mg/dL Urine Leukocyte Esterase Trace Negative /uL Urine RBC 2 0 - 4 /hpf Urine Microscopic WBC 5 0-5 /HPF Urine Squamous Epithelial Cells Few <5 /hpf Urine Bacteria None seen None Seen /hpf Urine Glucose 4+ H Normal mg/dL Microbiology Date/Time Source Procedure Growth Status 05/07/25 18:36 Foot Left Gram Stain - Final Resulted 05/07/25 18:36 Foot Left Wound Culture - Preliminary Resulted 05/06/25 18:00 Blood Blood Culture - Preliminary NO GROWTH AFTER 48 HOURS OF INCUBATION. Resulted Problems(with codes): (1) Osteomyelitis (2) Uncontrolled diabetes mellitus Plan/Recommendation ASSESSMENT: Patient is a 64 year old seen on the floor for a worsening ulcer PLAN: - The patients chart was reviewed, clinical findings were discussed with the patient, the etiologies of the conditions were discussed in detail, and a treatment plan was agreed to at this time, with both oral and written instructions provided. - reviewed advanced imaging - discussed plan to treat with IV antibiotics for 6 weeks - placement of PICC line - follow up in 1 week after discharge All questions were answered and concerns addressed to the patient's satisfaction. The patient was given the phone number to the clinic and was told how to make contact with the clinic should any concerns or questions arise. Patient understands that if any questions or concerns arise prior to the next appointment, we should be contacted immediately. FOLLOW-UP: Continue to follow while inpatient Plan discussed with: Patient Visit Coding Podiatry Date of Service if different f: May 09, 2025 Billing Provider: SE LOUISE DPM Podiatry Common Visit Codes: CONSULT ONLY Podiatry Consult Codes: 78204-EB/OBS [id number] NEW/EST HI 80 SE LOUISE DPM May 09, 2025 13:04
[2025-05-09 16:47] VITALS: BP 102/61; PULSE 63; RESP 16; TEMP 97.8; O2SAT 98
== END 2025-05-09 18:45 | disposition home health service (06) | DRG 344 ==
LOC: ER 12:48 → OVERFLOW 18:42 → TELE-EAST 05-07 03:37
PROVIDERS: ADMIT Student in an Organized Health Care Education/Training Program; ATTEND Student in an Organized Health Care Education/Training Program
PROC: 02HV33Z Insertion of Infusion Device into Superior Vena Cava, Percutaneous Approach (ICD-10-PCS; principal; 2025-05-08)
PROC: B548ZZA Ultrasonography of Superior Vena Cava, Guidance (ICD-10-PCS; 2025-05-08)
DX: E11.69 Type 2 diabetes mellitus with other specified complication (principal); M86.8X7 Other osteomyelitis, ankle and foot; N17.0 Acute kidney failure with tubular necrosis; L03.115 Cellulitis of right lower limb; L03.032 Cellulitis of left toe; E11.621 Type 2 diabetes mellitus with foot ulcer; Z80.8 Family history of malignant neoplasm of other organs or systems; Z83.3 Family history of diabetes mellitus; Z88.5 Allergy status to narcotic agent; Z89.412 Acquired absence of left great toe; Z89.421 Acquired absence of other right toe(s); L97.529 Non-pressure chronic ulcer of other part of left foot with unspecified severity; S92.422A Displaced fracture of distal phalanx of left great toe, initial encounter for closed fracture
CPT/HCPCS: 36415; 36569; 71045; 73700; 76937; 80048; 80076; 80202; 81001; 82962; 83036; 83605; 83735; 83880; 84443; 84484; 85025; 85610; 85730; 87040; 87081; 87205; 93971; 96365; 96367; G0378; J0692; J1815; J2543; J3490